=== PATIENT | female | born 1990 | race Hispanic/Latino ===

== ENCOUNTER 2017-10-29 20:56 | Emergency (ER) | payer MEDICAID, OTHER ==
[2017-10-29 21:28] LABS: APPEARANCE,URINE Clear (CLEAR); BILIRUBIN,URINE Negative (NEGATIVE); COLOR,URINE Yellow (YELLOW); GLUCOSE, URINE (UA) Negative (NEGATIVE); KETONES,URINE Negative (NEGATIVE); LEUKOCYTE ESTERASE ,URINE Trace (NEGATIVE); NITRATE,URINE Negative (NEGATIVE); OCCULT BLOOD,URINE Small (NEGATIVE); PH,URINE 5.5 (5.0-8.0); PROTEIN,URINE Negative (NEGATIVE)
[2017-10-29 21:29] LABS: HCG,QUAL RESULT POSITIVE (NEGATIVE)
[2017-10-29 21:34] LABS: BASOPHILS % (AUTO) 0.7 % (0.0-5.0); EOSINOPHILS % (AUTO) 1.9 % (0.0-8.0); HEMATOCRIT 35.9 % (36-48); LYMPHOCYTES % (AUTO) 20.4 % (21.0-51.0); MEAN CORPUSCULAR HEMOGLOBIN 29.9 pg (27.0-33.0); MEAN CORPUSCULAR HGB CONC 34.8 g/dL (32.0-36.0); MEAN CORPUSCULAR VOLUME 85.9 fL (79-99); NUCLEATED RED BLOOD CELLS 0.1 % (0.0-0.19); PLATELET COUNT (AUTO) 250 K/uL (130-400); RED BLOOD CELL COUNT(AUTO) 4.17 MIL/uL (4.00-5.50); RED CELL DISTRIBUTION WIDTH 13.9 % (11.0-15.5); WHITE BLOOD COUNT (AUTO) 6.1 K/uL (4.8-10.8)
[2017-10-29 21:43] LABS: CREATININE 0.6 mg/dL (0.5-1.5)
[2017-10-29 22:02] LABS: BACTERIA,URINE Rare /HPF (None Seen); MUCUS,URINE Rare LPF (None Seen); SQUAMOUS EPITHELIAL CELL,UR Few /HPF (0-2); WBC,URINE 0-1 /HPF (0-1)
== END 2017-10-29 23:27 | disposition home or self-care (01) ==
LOC: EDH 20:56
DX: O20.0 Threatened abortion (principal); Z3A.01 Less than 8 weeks gestation of pregnancy
CPT/HCPCS: 36415; 76801; 80048; 81001; 81025; 84702; 85025; 86900; 86901

== ENCOUNTER 2018-01-17 05:50 | Observation (INO) | payer MEDICAID ==
[~2018-01-17] VITALS: Ht 157.5 cm; Wt 56.7 kg
[2018-01-17] MEDS ORDERED: SODIUM CHLORIDE 0.9% 1000ML 1,000 ML IV ONE (06:03)
[2018-01-17 06:15] LABS: BASOPHILS % (AUTO) 0.2 % (0.0-5.0); EOSINOPHILS % (AUTO) 0.3 % (0.0-8.0); LYMPHOCYTES % (AUTO) 7.5 % (21.0-51.0); MEAN CORPUSCULAR HEMOGLOBIN 30.8 pg (27.0-33.0); MEAN CORPUSCULAR HGB CONC 35.3 g/dL (32.0-36.0); MEAN CORPUSCULAR VOLUME 87.2 fL (79-99); MONOCYTES % (AUTO) 5.6 % (3.0-13.0); NEUTROPHILS % (AUTO) 86.4 % (40.0-77.0); PLATELET COUNT (AUTO) 211 K/uL (130-400); RED CELL DISTRIBUTION WIDTH 15.1 % (11.0-15.5); WHITE BLOOD COUNT (AUTO) 6.6 K/uL (4.8-10.8)
[2018-01-17 06:24] LABS: CREATININE 0.5 mg/dL (0.5-1.5); POTASSIUM 3.3 mmol/L (3.5-5.1)
[2018-01-17 06:30] LABS: ALBUMIN 2.8 g/dL (3.5-5.0); BILIRUBIN,TOTAL 0.8 mg/dL (0.2-1.0); TOTAL PROTEIN, SERUM 7.3 g/dL (6.0-8.3)
[2018-01-17] MEDS ORDERED: ACETAMINOPHEN 325 MG TAB ONE (06:54)
[2018-01-17] MEDS ORDERED: CEFTRIAXONE SODIUM 1 GM ONE (07:02)
[2018-01-17 07:11] LABS: APPEARANCE,URINE Cloudy (CLEAR); BILIRUBIN,URINE Negative (NEGATIVE); COLOR,URINE Dark Yellow (YELLOW); GLUCOSE, URINE (UA) Negative (NEGATIVE); HCG,QUAL RESULT POSITIVE (NEGATIVE); KETONES,URINE >=80 mg/dL (NEGATIVE); LEUKOCYTE ESTERASE ,URINE Moderate (NEGATIVE); NITRATE,URINE Negative (NEGATIVE); OCCULT BLOOD,URINE Negative (NEGATIVE); PH,URINE 5.5 (5.0-8.0); PROTEIN,URINE Trace (NEGATIVE)
[2018-01-17] MEDS ORDERED: LACTATED RINGERS 1000ML 1,000 ML IV ONE (07:14)
[2018-01-17 07:37] LABS: RBC,URINE 0-1 /HPF (0-1)
[2018-01-17 07:38] LABS: BACTERIA,URINE Moderate /HPF (None Seen); MUCUS,URINE Many LPF (None Seen); SQUAMOUS EPITHELIAL CELL,UR Moderate /HPF (0-2)
[2018-01-17 07:46] LABS: YEAST,URINE BUDDING Rare /HPF (None Seen)
[2018-01-17 08:37] VITALS: BP 98/67
[2018-01-17] MEDS ORDERED: LACTATED RINGERS 1000ML IV SCH (09:00)
[2018-01-17] MEDS: LACTATED RINGERS 1000ML 1,000 ML IV SCH ×3 (09:35→21:31)
[2018-01-17] MEDS ORDERED: PNV71COM3 PO (10:16)
[2018-01-17 11:30] VITALS: BP 90/57
[2018-01-17] MEDS: METRONIDAZOLE 500MG/100ML BAG 100 ML IV SCH ×2 (14:03→21:30)
[2018-01-17 15:29] VITALS: BP 90/51
[2018-01-17] MEDS: ACETAMINOPHEN 325 MG TAB PO PRN ×2 (15:45→22:21)
[2018-01-17 19:45] VITALS: BP 88/59
[2018-01-17 23:21] VITALS: BP 95/55
[2018-01-18 04:08] VITALS: BP 93/64
[2018-01-18] MEDS: LACTATED RINGERS 1000ML 1,000 ML IV SCH ×2 (04:18→11:42)
[2018-01-18] MEDS: METRONIDAZOLE 500MG/100ML BAG 100 ML IV SCH ×2 (06:02→13:15)
[2018-01-18 07:19] VITALS: BP 101/68
[2018-01-18 11:20] VITALS: BP 91/50
== END 2018-01-18 15:10 | disposition home or self-care (01) ==
LOC: EDH 05:50 → EDHIP 05:51 → WSH 08:35
PROVIDERS: ADMIT Obstetrics & Gynecology; ATTEND Obstetrics & Gynecology
DX: O26.892 Other specified pregnancy related conditions, second trimester (principal); R10.30 Lower abdominal pain, unspecified; O21.2 Late vomiting of pregnancy; Z3A.16 16 weeks gestation of pregnancy
CPT/HCPCS: 36415; 76705; 76801; 80053; 81001; 81025; 83690; 85025; 87088; 96361 ×2; 96365; 96366 ×2; 99285; G0378 ×33; J0696; J3490 ×4; J7030; J7120 ×3